=== PATIENT | female | born 1975 | race American Indian/Alaskan Native ===

== ENCOUNTER 2016-12-29 10:03 | Outpatient (CLI) | payer OTHER ==
--- NOTE | 2016-12-29 10:40 | XRay Report ---
AP AND LATERAL LUMBOSACRAL SPINE: History: Lumbago with left sided sciatica. The vertebral bodies are well mineralized and normal in alignment and vertebral height with well preserved interspace distances. The visualized portions of the posterior elements are normal. IMPRESSION: Normal study.
== END 2016-12-29 10:04 | disposition home or self-care (01) ==
LOC: SPVIMAG 10:03
PROVIDERS: ATTEND Internal Medicine
DX: M54.42 Lumbago with sciatica, left side (principal)
CPT/HCPCS: 72100